=== PATIENT | male | born 1980 | race African-American/Black ===

== ENCOUNTER 2017-10-28 09:11 | Emergency (ER) | payer MEDICAID ==
[~2017-10-28] VITALS: Ht 177.8 cm; Wt 91.0 kg
[2017-10-28] MEDS ORDERED: ONDANSETRON 4MG ODT PO STA (09:44)
[2017-10-28] MEDS ORDERED: DICYCLOMINE 10 MG/5 ML ORAL SYR PO STA (09:44)
[2017-10-28 10:27] LABS: BASOPHILS % 0.5 % (0.0-2.0); EOSINOPHILS % 0.3 % (0.0-5.0); HEMATOCRIT. 44.6 % (42.0-52.0); HEMOGLOBIN. 14.4 g/dL (14.0-18.0); LYMPHOCYTES % 10.4 % (20.0-50.0); MEAN CORPUSCULAR HEMOGLOBIN 23.4 pg (28.0-32.0); MEAN CORPUSCULAR VOLUME 72.3 fL (80.0-94.0); MEAN PLATELET VOLUME 8.3 fl (7.4-10.4); MONOCYTES % 3.8 % (2.0-8.0); PLATELET 217 x1000/uL (130-400); RED BLOOD CELL COUNT 6.16 mill/uL (4.7-6.1); RED CELL DISTRIBUTION WIDTH 15.5 % (11.6-14.6)
[2017-10-28 10:36] LABS: PROTHROMBIN TIME 10.3 sec (9.4-11.6)
[2017-10-28 10:42] LABS: CHLORIDE 108 mEq/L (98-107)
[2017-10-28 10:46] LABS: ETHANOL BLOOD < 10 mg/dL
[2017-10-28 11:33] VITALS: BP 127/69
== END 2017-10-28 12:05 | disposition left against medical advice (07) ==
LOC: ER 09:33
DX: R11.2 Nausea with vomiting, unspecified (principal); R19.7 Diarrhea, unspecified; R10.9 Unspecified abdominal pain; F12.10 Cannabis abuse, uncomplicated; F17.210 Nicotine dependence, cigarettes, uncomplicated; E87.6 Hypokalemia
CPT/HCPCS: 36415; 80053; 83690; 85025; 85610; 99284; G0482; Q0162